=== PATIENT | male | born 1980 | race Two or more races ===

== ENCOUNTER 2024-08-24 14:10 | Emergency (ER) | payer OTHER ==
[~2024-08-24] VITALS: Ht 182.9 cm; Wt 87.1 kg
[2024-08-24] MEDS ORDERED: GUAIFENESIN/DEXTROMETHORPHAN 10ML BLIST.PACK PO ONE (16:30)
[2024-08-24] MEDS ORDERED: CETIRIZINE HCL 5 MG/5 ML ML PO ONE (16:30)
[2024-08-24 17:00] LABS: HEMATOCRIT 42.9 % (39.0-48.0); HEMOGLOBIN 14.5 g/dL (13-16.00); MEAN CELL VOLUME 82.4 fL (80.0-100.00); MEAN CORPUSCULAR HEMOGLOBIN 27.9 pg (27.00-32.0); MEAN CORPUSCULAR HGB CONC 33.9 g/dl (32.0-36.0); PLATELET COUNT 174 K/uL (150-450); RED BLOOD COUNT 5.21 M/uL (4.00-6.00); RED CELL DISTRIBUTION WIDTH 13.1 % (11.5-14.5)
[2024-08-24] MEDS ORDERED: ZYRTEC10 MG PO (18:40)
[2024-08-24] MEDS ORDERED: TUSSIN DM LIQU118 ML PO (18:40)
== END 2024-08-24 18:56 | disposition home or self-care (01) ==
LOC: ER 14:12
PROVIDERS: Nurse Practitioner Family
DX: J06.9 Acute upper respiratory infection, unspecified (principal); J00 Acute nasopharyngitis [common cold]; Z20.822 Contact with and (suspected) exposure to COVID-19

== ENCOUNTER 2024-10-27 11:04 | Outpatient (CLI) | payer OTHER ==
[~2024-10-27 11:04] MED LIST: TUSSIN DM LIQU118 ML PO; ZYRTEC10 MG PO
== END 2024-10-27 11:05 | disposition home or self-care (01) ==
LOC: SONOGRAMA 11:04
PROVIDERS: ATTEND General Practice
DX: R94.6 Abnormal results of thyroid function studies (principal)

== ENCOUNTER 2025-02-17 10:16 | Emergency (ER) | payer OTHER ==
[~2025-02-17] VITALS: Ht 182.9 cm; Wt 87.1 kg
[2025-02-17] MEDS ORDERED: ONDANSETRON HCL 2 MG/ML VIAL IV ONE (10:30)
[2025-02-17] MEDS ORDERED: 0.9 % SODIUM CHLORIDE 1,000 ML IV ONE (10:30)
[2025-02-17] MEDS ORDERED: FAMOtidine 10 MG/ML (4ML VIAL) IV ONE (10:30)
[2025-02-17] MEDS ORDERED: CHOLESTYRAMINE/ASPARTAME LIGHT 4 G/PKT PACKET PO ONE (10:30)
[2025-02-17 11:25] LABS: HEMATOCRIT 42.6 % (39.0-48.0); HEMOGLOBIN 14.6 g/dL (13-16.00); MEAN CELL VOLUME 81.4 fL (80.0-100.00); MEAN CORPUSCULAR HEMOGLOBIN 27.9 pg (27.00-32.0); MEAN CORPUSCULAR HGB CONC 34.2 g/dl (32.0-36.0); PLATELET COUNT 161 K/uL (150-450); RED BLOOD COUNT 5.24 M/uL (4.00-6.00); RED CELL DISTRIBUTION WIDTH 13.4 % (11.5-14.5)
[2025-02-17 11:47] LABS: COVID-19 AG NEGATIVE (NEGATIVE)
[2025-02-17 11:48] LABS: INFLUENZA A AG NEGATIVE (NEGATIVE)
[2025-02-17] MEDS ORDERED: ZOFRAN8 MG PO (12:07)
[2025-02-17] MEDS ORDERED: PROBIOTIC1 EAC2 PO (12:07)
[2025-02-17] MEDS ORDERED: PEPCID AC20 MG PO (12:07)
== END 2025-02-17 12:24 | disposition home or self-care (01) ==
LOC: ER 10:17
PROVIDERS: General Practice
DX: K52.9 Noninfective gastroenteritis and colitis, unspecified (principal); R11.10 Vomiting, unspecified; Z20.822 Contact with and (suspected) exposure to COVID-19

== ENCOUNTER 2025-09-21 09:32 | Emergency (ER) | payer OTHER ==
[~2025-09-21] VITALS: Ht 185.4 cm; Wt 86.2 kg
[~2025-09-21 09:32] MED LIST changes: +PEPCID AC20 MG PO; +PROBIOTIC1 EAC2 PO; +ZOFRAN8 MG PO
[2025-09-21] MEDS ORDERED: KETOROLAC TROMETHAMINE 30 MG VIAL IM STA (10:06)
[2025-09-21] MEDS ORDERED: DEXAMETHASONE SODIUM PHOSPHATE 4 MG/ML VIAL IM STA (10:06)
[2025-09-21] MEDS ORDERED: KETOROLAC TROMETHAMINE 30 MG VIAL ONE (10:09)
[2025-09-21] MEDS ORDERED: DEXAMETHASONE SODIUM PHOSPHATE 4 MG/ML VIAL ONE (10:09)
[2025-09-21] MEDS ORDERED: ORPHENADRINE CITRATE 100 MG TABLET PO ONE (10:15)
[2025-09-21] MEDS ORDERED: NAPROXEN500 MG PO (12:56)
== END 2025-09-21 13:30 | disposition home or self-care (01) ==
LOC: ER 09:33
DX: M25.512 Pain in left shoulder (principal)